=== PATIENT | female | born 1990 | race Caucasian/White ===

== ENCOUNTER 2022-09-07 18:45 | Emergency (ER) | payer SELFPAY ==
[~2022-09-07] VITALS: Ht 165.1 cm; Wt 78.5 kg
[2022-09-07 19:18] VITALS: BP 111/58; PULSE 69; RESP 17; TEMP 98.6; O2SAT 100
[2022-09-07 20:23] LABS: BASOPHILS % 0.2 % (0.0-2.0); EOSINOPHILS % 0.5 % (0.0-5.0); HEMATOCRIT. 36.5 % (36.0-48.0); HEMOGLOBIN. 12.5 g/dL (12.0-16.0); MEAN CORPUSCULAR HEMOGLOBIN 31.4 pg (28.0-32.0); MEAN CORPUSCULAR VOLUME 91.6 fL (81.0-99.0); MEAN PLATELET VOLUME 9.7 fl (7.4-10.4); MONOCYTES % 6.2 % (2.0-8.0); NEUTROPHILS % 77.1 % (40.0-76.0); PLATELET 246 x1000/uL (130-400); RED BLOOD CELL COUNT 3.98 mill/uL (4.2-5.4); RED CELL DISTRIBUTION WIDTH 13.6 % (11.6-14.6)
[2022-09-07 20:32] LABS: CHLORIDE 107 mEq/L (98-107)
[2022-09-07 21:05] LABS: UCG SCREEN POSITIVE
[2022-09-07 21:31] LABS: CLARITY URINE CLEAR (CLEAR); COLOR URINE YELLOW (YELLOW); PROTEIN URINE NEGATIVE (NEGATIVE); SPECIFIC GRAVITY URINE 1.007 (1.005-1.030)
[2022-09-07 21:32] LABS: KETONES URINE NEGATIVE (NEGATIVE); LEUKOCYTE ESTERASE URINE NEGATIVE (NEGATIVE); NITRITE URINE NEGATIVE (NEGATIVE); OCCULT BLOOD URINE NEGATIVE (NEGATIVE); UROBILINOGEN URINE 0.2 E.U./dL (0.2-1.0)
[2022-09-07] MEDS ORDERED: DICYCLOMINE 10 MG/5 ML ORAL SYR PO STA (22:21)
[2022-09-07] MEDS ORDERED: MAGNESIUM/ALUMINUM HYDROXIDE/SIMETHICONE 30ML UDC PO STA (22:21)
[2022-09-07] MEDS ORDERED: FAMOTIDINE 20MG TABLET PO ONE (22:30)
[2022-09-08] MEDS ORDERED: FAMO-135 MT (00:36)
== END 2022-09-08 00:43 | disposition home or self-care (01) ==
LOC: ER 18:45
DX: O26.891 Other specified pregnancy related conditions, first trimester (principal); Z3A.08 8 weeks gestation of pregnancy
CPT/HCPCS: 36415; 76801; 80053; 81003; 81025; 84702; 85025; 99284

== ENCOUNTER 2024-11-19 02:48 | Emergency (ER) | payer MEDICAID ==
[~2024-11-19] VITALS: Ht 162.6 cm; Wt 84.0 kg
[~2024-11-19 02:48] MED LIST: FAMO-135 MT
[2024-11-19 02:58] VITALS: O2SAT 98
[2024-11-19] MEDS ORDERED: CIPHCO LEFT EAR (03:32)
[2024-11-19] MEDS: KETOROLAC 30MG/ML VIAL IM ONE (04:10)
[2024-11-19 04:12] VITALS: BP 109/69; PULSE 68; RESP 16; TEMP 37.1; O2SAT 98
== END 2024-11-19 04:13 | disposition home or self-care (01) ==
LOC: ER 02:48
DX: H92.02 Otalgia, left ear (principal)
CPT/HCPCS: 81025; 96372; 99283; J1885; Z7610